=== PATIENT | female | born 1955 | race Native Hawaiian/Other Pacific Islander ===

== ENCOUNTER 2016-12-31 15:33 | Outpatient (CLI) | payer BC | END 2016-12-31 19:10 | disposition home or self-care (01) | LOC: RAD 15:33 | DX: M25.552 Pain in left hip (principal); M54.10 Radiculopathy, site unspecified ==

== ENCOUNTER 2020-10-13 09:06 | Outpatient (CLI) | payer OTHER | END 2020-10-13 21:48 | disposition home or self-care (01) | LOC: MAMMO 09:06 | PROVIDERS: ATTEND Nurse Practitioner Family | DX: Z12.31 Encounter for screening mammogram for malignant neoplasm of breast (principal); M81.0 Age-related osteoporosis without current pathological fracture; F17.200 Nicotine dependence, unspecified, uncomplicated | CPT/HCPCS: G0297-TC ==

== ENCOUNTER 2020-10-26 08:30 | Day surgery (SDC) | payer OTHER ==
[2020-10-23 08:32] LABS: PLATELET COUNT 127 K/uL (152-353)
[2020-10-23 08:37] LABS: POTASSIUM 3.6 mmol/L (3.6-5.2)
== END 2020-10-26 12:52 | disposition home or self-care (01) ==
LOC: OR 08:30
PROVIDERS: ATTEND Student in an Organized Health Care Education/Training Program
PROC: 0DBM8ZZ Excision of Descending Colon, Via Natural or Artificial Opening Endoscopic (ICD-10-PCS; principal; 2020-10-26)
DX: D12.4 Benign neoplasm of descending colon (principal); Z12.11 Encounter for screening for malignant neoplasm of colon; Z20.828 Contact with and (suspected) exposure to other viral communicable diseases
CPT/HCPCS: 80053; 85027; 87635; J2704; U0003

== ENCOUNTER 2022-03-13 14:34 | Outpatient (CLI) | payer OTHER | END 2022-03-13 18:58 | disposition home or self-care (01) | LOC: RAD 14:34 | PROVIDERS: ATTEND Nurse Practitioner Family | DX: M25.561 Pain in right knee (principal) ==